=== PATIENT | female | born 1980 | race Two or more races ===

== ENCOUNTER 2024-06-19 13:25 | Emergency (ER) | payer OTHER ==
[~2024-06-19] VITALS: Ht 162.6 cm; Wt 57.2 kg
[2024-06-19 17:41] LABS: HEMOGLOBIN 12.1 g/dL (12.0-15.00); MEAN CELL VOLUME 82.2 fL (80.00-100.00); MEAN CORPUSCULAR HEMOGLOBIN 27.5 pg (27.00-32.0); MEAN CORPUSCULAR HGB CONC 33.5 g/dl (32.0-36.0); PLATELET COUNT 303 K/uL (150-450); RED BLOOD COUNT 4.38 M/uL (4.00-6.00); RED CELL DISTRIBUTION WIDTH 15.9 % (11.5-14.5)
[2024-06-19 17:56] LABS: ALBUMIN 3.6 gm/dL (3.4-5.0); ALKALINE PHOSPHATASE 57 U/L (50-136); ALT/SGPT 19 U/L (12-78); ANION GAP 10 (10.0-20.0); AST/SGOT 17 U/L (15-37); BILIRUBIN TOTAL 0.34 mg/dL (0.3-1.2); BLOOD UREA NITROGEN 7 mg/dL (7-18); BUN CREA RATIO 15 (7.0-25.0); CALCIUM 8.9 mg/dL (8.5-10.1); CARBON DIOXIDE 28 mEq/L (21-32); CHLORIDE 106 mmol/L (98-107); CREATININE SERUM 0.46 mg/dL (0.55-1.02); GFR 148.97; GLOBULINA 4.1 G/DL (2.4-3.5); GLUCOSE FASTING 84 mg/dL (65-100); OSMOLALITY SERUM 277 MOSM/KG (275-295); POTASSIUM 3.63 mEq/L (3.5-5.1); SODIUM 140 mmol/L (136-145); TOTAL PROTEIN 7.7 gm/dL (6.4-8.2)
[2024-06-19 17:57] LABS: C-REACTIVE PROTEIN < 0.29 MG/DL (0.00-0.29); HCG QUANTITATIVE < 1 mUI/mL (1-3)
[2024-06-19 18:00] LABS: ERYTHROCYTE SEDIMENTATION RATE 57 mm/hr
[2024-06-19 18:30] LABS: D DIMER 0.75 MG/L; INR 0.99; PARTIAL THROMBOPLASTIN TIME 25.9 SECONDS (22.0-34.0); PROTHROMBIN TIME 10.8 SECONDS (9.0-11.5)
[2024-06-19] MEDS ORDERED: ADULT LOW DOSE81 M1 PO (18:41)
== END 2024-06-19 18:51 | disposition home or self-care (01) ==
LOC: ER 13:27
PROVIDERS: General Practice
DX: M79.605 Pain in left leg (principal); D28.2 Benign neoplasm of uterine tubes and ligaments

== ENCOUNTER → 2024-09-11 11:03 | Outpatient (CLI) | payer OTHER ==
[~2024-09-11 11:03] MED LIST: ADULT LOW DOSE81 M1 PO
== END | disposition home or self-care (01) ==
LOC: NUCLEAR 11:00
PROVIDERS: ATTEND Internal Medicine
DX: I82.423 Acute embolism and thrombosis of iliac vein, bilateral (principal)